=== PATIENT | male | born 1945 | race Caucasian/White ===

== ENCOUNTER 2016-07-22 11:48 | Day surgery (SDC) | payer MEDICARE, OTHER ==
--- NOTE | 2016-07-22 10:21 | HP ---
PROCEDURE DATE: 07/22/16 HISTORY OF PRESENT ILLNESS: The patient is a 71 y/o who had prior history of colonoscopy [address] Jordan[address] Had some polyp at that time. He has lost 16 pounds over the past 8 weeks, doesn't have any appetite, has not had any significant abdominal pain. He has been seen by the kidney doctor who questioned whether he had some blood in his urine. They ordered a CT. CT scan showed question of findings of cirrhosis or varices or splenorenal varices as well. He denies any bloody stools or change in bowel movements. Family history negative for colon cancer and unsure whether mother had bladder cancer or some other type of cancer, but negative for colon cancer. There are also several other types of cancers in the family, but negative for colon cancer according to the patient. PAST MEDICAL HISTORY: He has rheumatoid arthritis. Has had atrial flutter in the past. He had been on Eliquis in the past, but he stopped over the past 3 weeks. He has had some hypothyroidism as well and some gout. CURRENT MEDICATIONS: Remicade, Synthroid, omeprazole, testosterone, Colace. He has been off of his Eliquis for 3 weeks. He has been on metoprolol, Tamsulosin, Fosamax, allopurinol, magnesium oxide, vitamin D, and Buspirone. ALLERGIES: NKDA. PAST SURGICAL HISTORY: He had wrist surgery 55 years ago. He had had colonoscopy by Dr. Jordan in the past. FAMILY HISTORY: Again, family history of bladder cancer and several other types of cancer on his mother's side. SOCIAL HISTORY: No smoking or alcohol abuse. REVIEW OF SYSTEMS: 12 systems reviewed negative or noncontributory other than above and per admission assessment. PHYSICAL EXAMINATION: GENERAL: No acute distress. HEENT: Sclerae nonicteric. NECK: No JVD. CHEST: Equal excursion. Nonlabored breathing. CVS: Regular rhythm. ABDOMEN: Soft. No peritoneal signs. EXTREMITIES: No edema. NEURO: Alert, moving extremities symmetrically. No gross motor deficits noted. Dr. Calle had talked to Dr. Monica Rodriguez and she saw him in the office. Had set him up to see Dr. Gaitan who took over for Dr. Jordan, but couldn't see him until September, so they asked that we see him sooner, so Dr. Anderson scheduled to have him come in to the office and possible upper and lower scope today. Past ultrasounds show unremarkable right upper quadrant US. He had had a CT scan show suspected cirrhotic liver, splenomegaly, splenorenal varices, question of esophageal varices, small amount of pelvic ascites. There is some new cecal/ascending colon wall thickening and question of stranding and some small mesenteric nodes, some fecal stasis, diverticulosis, small amount of fluid in the left inguinal area, nonobstructing renal calculi bilaterally. IMPRESSION: THICKENING ASCENDING COLON. NEW FINDINGS OF QUESTION OF CIRRHOSIS OR VARICES, UNCLEAR ETIOLOGY. WHETHER HE HAS MALIGANCY, COLITIS, NEOPLASIA VS OTHER ETIOLOGY. [place] he would benefit from upper and lower endoscopy for further evaluation. The patient denies any history of hepatitis or alcohol abuse in the past. Therefore, felt he would benefit from upper and lower endoscopy for further evaluation. Risks and benefits explained in detail, but not limited to, bleeding; infection; small risk of bowel injury or perforation possibly requiring open procedure; small risk of missed or nondiagnosis or incomplete exam possibly requiring barium enema or other studies or procedures; general risks of anesthesia or sedation; postoperative risk of nausea, vomiting, or cramping or possibility of inability to diagnose the etiology of his symptoms. He understands and agrees to the planned procedure. Will proceed with EGD/colonoscopy later today when OR time available.
[~2016-07-22 11:48] MED LIST: DIPRIVAN 200 MG/20 ML IV ONE; Ketamine HCl 50 MG/ML IV ONE
[2016-07-22] MEDS ORDERED: Lactated Ringers 1,000 ML IV SCH (12:30)
--- NOTE | 2016-07-22 15:45 | OP ---
SURGERY DATE/TIME: 07/22/2016 1406 PREOPERATIVE DIAGNOSES: 1) History of weight loss. 2) History of CT questioning thickening ascending colon as well as question of splenorenal varices question cirrhosis or ascites unclear etiology. Need for upper and lower endoscopy for further evaluation given weight loss. POSTOPERATIVE DIAGNOSES: 1) Slight hiatal hernia. 2) Minimal gastritis. 3) Poor bowel prep limiting colon exam. 4) Moderate to severe diverticulosis. 5) Small internal and external hemorrhoids. 6) Small raised lesion rectosigmoid and rectum. 7) No evidence of any obvious gross macroscopic colitis or mass right colon on endoscopic exam. PROCEDURES: 1) EGD with cold biopsy to antrum for Helicobacter pylori. 2) Colonoscopy to terminal ileum, retrograde ileoscopy. 3) Retrograde ileoscopy. 4) Random cold biopsies of right colon transverse colon to evaluate microscopic colitis. 5) Hot biopsy removal of small raised lesion versus hyperplastic lesion versus early polyp rectosigmoid and rectum. SURGEON: Dr. Jay Kingsley. ANESTHESIA: MAC. ESTIMATED BLOOD LOSS: Minimal. INDICATIONS: As noted above. Risks and benefits explained in detail and not limited to and consent obtained. DESCRIPTION OF PROCEDURE AND FINDINGS: The patient was taken to the endoscopy room. MAC anesthesia induced. After official time out and no disagreement with planned procedure, bite block positioned. Video gastroscope easily passed down through the esophagus through the patent pylorus to the junction of the second and third portion of the duodenum. On withdrawal of the scope, duodenum and duodenal bulb grossly unremarkable. Back in the stomach had some minimal gastritis. Given his weight loss, cold biopsy taken to evaluate for Helicobacter pylori. Good hemostasis noted. On retroflex appeared to be just a very slight hiatal hernia. No evidence of any large hiatal hernia. There are no signs of any obvious masses, ulcers or any other mucosal lesions. The scope was then pulled back and the gastroesophageal junction noted to be at 40 cm. Z-line was fairly crisp. Esophageal mucosa was grossly unremarkable. No signs of any obvious masses, ulcers or Correa's. There did not appear to be any large intraluminal varices on endoscopic exam at this juncture. The remainder of the esophagus grossly unremarkable. The scope is withdrawn. Digital rectal exam did not reveal any rectal masses. He did have some internal and external hemorrhoids. Video colonoscope inserted and passed up the sigmoid, descending, transverse amd ascending colon to the cecum. Up into the terminal ileum retrograde ileoscopy was performed. Terminal ileum grossly unremarkable. The scope was then carefully withdrawn. The prep overall was poor. Several areas of liquidy semi-solid and solid stool limiting the exam for potential small lesions. The mucosa in the cecum, ascending, transverse colon was grossly unremarkable. No signs of any macroscopic colitis. Given the CT findings it was felt that it warranted biopsy for microscopic colitis. Some cold biopsies taken throughout the cecum, ascending, transverse colon to evaluate for microscopic colitis. Otherwise the scope is slowly and carefully withdrawn. There are no signs of any large polyps, masses or obstructing lesions. Over in the left colon the patient did have moderately severe diverticulosis. There are no signs of any large polyps, masses or obstructing lesions. Back in the rectosigmoid and proximal rectum area there is some small raised lesions whether these are just simple early hyperplastic polyps versus early true polyps versus just hyperplasia of mucosa removed with hot biopsy forceps with brief bursts of cautery. Good hemostasis noted. Otherwise he had some internal and external hemorrhoids. There were no signs of any large polyps, masses or obstructing lesion. Again it was difficult to tell whether question of cirrhotic changes on liver but he did not appear to have any obvious masses in the upper or lower GI tract. Question whether relation to his medications for treatment of arthritis. I defer that to his medical physician as there is no obvious intraluminal mass to suggest etiology of this. Findings discussed with the family out in the waiting area.
[2016-07-22 16:54] VITALS: BP 143/63; PULSE 70; O2SAT 99
== END 2016-07-22 16:10 | disposition home or self-care (01) ==
LOC: SDC 11:48
PROVIDERS: ATTEND Surgery
PROC: 0DB68ZX Excision of Stomach, Via Natural or Artificial Opening Endoscopic, Diagnostic (ICD-10-PCS; principal; 2016-07-22)
PROC: 0DBH8ZX Excision of Cecum, Via Natural or Artificial Opening Endoscopic, Diagnostic (ICD-10-PCS; 2016-07-22)
PROC: 0DBL8ZX Excision of Transverse Colon, Via Natural or Artificial Opening Endoscopic, Diagnostic (ICD-10-PCS; 2016-07-22)
PROC: 0DBK8ZX Excision of Ascending Colon, Via Natural or Artificial Opening Endoscopic, Diagnostic (ICD-10-PCS; 2016-07-22)
PROC: 0DBN8ZX Excision of Sigmoid Colon, Via Natural or Artificial Opening Endoscopic, Diagnostic (ICD-10-PCS; 2016-07-22)
PROC: 0DBP8ZX Excision of Rectum, Via Natural or Artificial Opening Endoscopic, Diagnostic (ICD-10-PCS; 2016-07-22)
PROC: 0DJD8ZZ Inspection of Lower Intestinal Tract, Via Natural or Artificial Opening Endoscopic (ICD-10-PCS; 2016-07-22)
DX: K44.9 Diaphragmatic hernia without obstruction or gangrene (principal); K29.70 Gastritis, unspecified, without bleeding; K57.90 Diverticulosis of intestine, part unspecified, without perforation or abscess without bleeding; K64.4 Residual hemorrhoidal skin tags; K64.8 Other hemorrhoids; K63.9 Disease of intestine, unspecified; M19.90 Unspecified osteoarthritis, unspecified site; E03.9 Hypothyroidism, unspecified; I48.92 Unspecified atrial flutter; M10.9 Gout, unspecified; Z79.01 Long term (current) use of anticoagulants; Z79.899 Other long term (current) drug therapy
CPT/HCPCS: 00740; 00810; 36415; 87081; 88305; 99100; J2704

== ENCOUNTER 2016-09-02 09:55 | Day surgery (SDC) | payer MEDICARE, OTHER ==
--- NOTE | 2016-09-02 08:45 | HP ---
DATE OF SURGERY: 09/02/2016 HISTORY OF PRESENT ILLNESS: The patient is a 71 year-old who follows with Dr. Gaitan and had some inguinal adenopathy on biopsy from past evaluation. Evaluate for any possible lipoma. PAST MEDICAL HISTORY: Sleep apnea. Right hiatal hernia in the past. Rheumatoid arthritis. Hypertension. Gout. He followed up with Dr. Delgado for atrial flutter in the past. MEDICATIONS: Remicade, Synthroid, folic acid, omeprazole, Colace, Metoprolol, Tamsulosin, Fosamax, Allopurinol, magnesium oxide, vitamin D, Buspirone. ALLERGIES: NKDA. PAST SURGICAL HISTORY: He had right wrist surgery in the past. He had endoscopy in the past. FAMILY HISTORY: Bladder cancer as well as other types of cancer on mother's side of the family. SOCIAL HISTORY: No smoking or alcohol abuse. REVIEW OF SYSTEMS: Twelve systems reviewed per admission assessment. No chest pain or palpitations other systems negative or noncontributory as above and per preadmission questionnaire. PHYSICAL EXAMINATION: GENERAL: No acute distress. HEENT: Sclerae nonicteric. NECK: No JVD. CHEST: Equal excursion, nonlabored breathing. CVS: Regular rate and rhythm. ABDOMEN: Soft. No peritoneal signs. He had some small inguinal adenopathy. EXTREMITIES: No significant edema. NEURO: Alert, moving extremities symmetrically. No gross motor deficits noted. IMPRESSION: Inguinal adenopathy. I feel he will benefit from biopsy to evaluate for lymphoma and to rule out other etiology. Risks and benefits explained in detail including but not limited to bleeding or infection, risk of hematoma or seroma formation. The fact that he will have a drain postoperatively and most the time removed in the office when the drainage has decreased. Risk of lymph edema, risk of aches, pains, burning or numbness, risk of wound infection, general risk of anesthesia, deep venous thrombosis, pulmonary embolism, and pneumonia but not limited to, possibility of inability to diagnose per the pathologist to determine the etiology of his adenopathy. He understands and agrees to the planned procedure and would like to proceed right inguinal adenopathy biopsy as an outpatient.
[~2016-09-02 09:55] MED LIST changes: -DIPRIVAN 200 MG/20 ML IV ONE; -Ketamine HCl 50 MG/ML IV ONE; +Lactated Ringers 1,000 ML IV ONE; +Sensorcaine 0.25% 10 ML ONE
[2016-09-02] MEDS ORDERED: CEFAZOLIN 2 GM-D5W BAG** 2 GM/50 ML ML IV ONE ×2 (10:02→10:04)
[2016-09-02] MEDS ORDERED: Lactated Ringers 1,000 ML IV ONE (10:04)
[2016-09-02] MEDS ORDERED: Lactated Ringers 1,000 ML IV SCH (10:30)
[2016-09-02] MEDS ORDERED: TORAdol 30 mg Injection IV ONE (12:00)
[2016-09-02] MEDS ORDERED: DIPRIVAN 200 MG/20 ML IV ONE (12:00)
[2016-09-02] MEDS ORDERED: SUBLIMAZE 100 MCG/2 ML IV ONE (12:00)
[2016-09-02] MEDS ORDERED: Ephedrine Sulfate 50 MG/ML IV ONE (12:00)
[2016-09-02] MEDS ORDERED: Zofran 4 MG/2 ML VIAL IV ONE (12:00)
[2016-09-02] MEDS ORDERED: Decadron 4 MG INJ IV ONE (12:00)
[2016-09-02 15:01] VITALS: O2SAT 97
[2016-09-02 15:15] VITALS: BP 148/83; PULSE 70
--- NOTE | 2016-09-03 07:51 | OP ---
SURGERY DATE/TIME: 09/02/2016 1130 PREOPERATIVE DIAGNOSIS: Inguinal lymphadenopathy. History of weight loss. Need for biopsy. POSTOPERATIVE DIAGNOSIS: Inguinal lymphadenopathy. History of weight loss. Need for biopsy. PROCEDURE: Excision of right inguinal lymph node with biopsy. SURGEON: Dr. Jay Kingsley. DESTINATION SIGN REPAIRER: Branden Leavitt, Medical Student III. ANESTHESIA: General. ESTIMATED BLOOD LOSS: Minimal. INDICATIONS: As noted above. Risks and benefits explained in detail and not limited to and consent obtained. DESCRIPTION OF PROCEDURE AND FINDINGS: The patient is taken to the operating room. General anesthesia induced. The site was confirmed with the patient in the preoperative hold area. The radiologist felt the right side was larger than the left so it was elected to go ahead and biopsy the right side. General anesthesia induced. Inguinal area prepped and draped in usual sterile fashion. After official time out dissection carried down the Mike fascia to the indurated lymphadenopathy. Small arteriole veins going in and out of the lymph node area and small lymphatics were clipped and divided as necessary. Slowly and carefully lymph nodes are carefully mobilized upwards and passed off per lymph node protocol. Good hemostasis noted. Wound is irrigated out. Given the empty space to reduce the risk of seroma or lymphocele formation a semi-flat LILIA drain is placed in the bed and out through an inferior stab wound on the thigh. Mike closed with 3-0 Vicryl, subcu closed with 3-0 Vicryl, skin closed with 4-0 Vicryl. Steri-Strips and sterile dressing applied. 0.25% Marcaine local injected along the area. The patient tolerated the procedure well. There were no immediate complications.
== END 2016-09-02 14:15 | disposition home or self-care (01) ==
LOC: SDC 09:55
PROVIDERS: ATTEND Surgery
PROC: 07TH0ZZ Resection of Right Inguinal Lymphatic, Open Approach (ICD-10-PCS; principal; 2016-09-02)
DX: R59.9 Enlarged lymph nodes, unspecified (principal); G47.30 Sleep apnea, unspecified; M06.9 Rheumatoid arthritis, unspecified; I10 Essential (primary) hypertension; M10.9 Gout, unspecified; Z79.899 Other long term (current) drug therapy
CPT/HCPCS: 00400; 36415; 99100; J0690; J1100; J1885; J2405; J2704; J3010

== ENCOUNTER 2018-10-26 11:35 | Day surgery (SDC) | payer MEDICARE, OTHER ==
--- NOTE | 2018-10-26 09:01 | HP ---
DATE OF SURGERY: 10/26/2018 HISTORY OF PRESENT ILLNESS: The patient is a 73 year-old gentleman with subcutaneous mass on the right arm increasing in size. He desires excision. PAST MEDICAL HISTORY: Anemia from blood loss in the past. Rheumatoid arthritis. History of gout in the past. Hypothyroidism. Hypertension. PAST SURGICAL HISTORY: Endoscopy in the past. MEDICATIONS: Lexapro, Norvasc, Synthroid, Fosamax, Allopurinol, Colace, Buspirone, Remicade, vitamin D. ALLERGIES: NKDA. FAMILY HISTORY: Bladder cancer. SOCIAL HISTORY: No smoking or alcohol abuse. REVIEW OF SYSTEMS: Fourteen systems reviewed per admission assessment. No chest pain or palpitations currently other systems negative or noncontributory as above and per preadmission questionnaire. PHYSICAL EXAMINATION: GENERAL: No acute distress. HEENT: Sclerae nonicteric. NECK: No JVD. CHEST: Equal excursion, nonlabored breathing. CVS: Regular rate and rhythm. ABDOMEN: Soft, nontender, nondistended. EXTREMITIES: Upper arm soft, subcutaneous mass right arm question of lipoma or other etiology. IMPRESSION: Enlarging right arm subcutaneous mass question lipoma or other etiology enlarging in size that needs excision. I feel he is a candidate. Risks and benefits explained in detail including but not limited to bleeding or infection, risk of hematoma or seroma formation, risk of wound dehiscence possibly requiring healing by secondary intent or packing, general risk of aches, pain, burning or numbness, risk of sensory or motor nerve irritation or scar formation, general risk of anesthesia, deep venous thrombosis, pulmonary embolism or pneumonia, risk of cardiopulmonary event, deep venous thrombosis but not limited to. He understands and agrees to the planned procedure, will proceed with excisional biopsy of right arm mass as an outpatient.
[~2018-10-26 11:35] MED LIST changes: +Lactated Ringers 1,000 ML IV SCH
[2018-10-26] MEDS ORDERED: CEFAZOLIN 2 GM-D5W BAG** 2 GM/50 ML ML IV ONE (11:43)
[2018-10-26] MEDS ORDERED: CEFAZOLIN 2 GM-D5W BAG** 2 GM/50 ML ML IV SCH (12:00)
[2018-10-26] MEDS ORDERED: DIPRIVAN 200 MG/20 ML IV ONE (12:53)
[2018-10-26] MEDS ORDERED: Versed 2 MG/2 ML Injection ONE (12:53)
[2018-10-26] MEDS ORDERED: SUBLIMAZE 100 MCG/2 ML ONE ×2 (12:53→13:18)
[2018-10-26 15:25] VITALS: O2SAT 95
[2018-10-26 15:28] VITALS: BP 150/89; PULSE 68
--- NOTE | 2018-10-27 08:27 | OP ---
SURGERY DATE/TIME: 10/26/2018 1252 PREOPERATIVE DIAGNOSIS: Enlarging right arm or lipoma. POSTOPERATIVE DIAGNOSIS: Enlarging right arm or lipoma (subfascial lipoma). PROCEDURE: Excisional biopsy of right arm subfascial lipoma (approximately 6 cm), path pending. SURGEON: Dr. Jay Kingsley. ANESTHESIA: General. ESTIMATED BLOOD LOSS: Minimal. INDICATIONS: As noted above. Risks and benefits explained in detail and not limited to and consent obtained. Site had been confirmed and marked in the preoperative holding area. DESCRIPTION OF PROCEDURE AND FINDINGS: The patient is taken to the operating room. General anesthesia introduced. Right arm prepped and draped in usual sterile fashion. After official time out and no disagreement with planned procedure, longitudinal incision made directly overlying the area and dissection carried down the underneath the fascia this is carefully and this lobulated firm lipomatous density carefully mobilized up off the deeper structures staying directly on the lobulated lipomatous margin this is carefully mobilized upward. The superficial nerve carefully protected as well as possible. Digital nerve carefully protected as well as possible. Small arteriole and venules going into and out of the lipomatous density ligated with Vicryl tie directly on the border of the lipoma. This was carefully passed off for pathology. There is no other palpable densities in the wound. The wound irrigated out. Good hemostasis noted. Subcu closed with 3-0 Vicryl, skin closed with 4-0 Vicryl. Steri-Strip and sterile dressing, wide CARL wrap applied. The patient tolerated the procedure well. There were no immediate complications. Findings were discussed with the family out in the waiting area.
== END 2018-10-26 15:15 | disposition home or self-care (01) ==
LOC: SDC 11:35
PROVIDERS: ATTEND Surgery
DX: D17.21 Benign lipomatous neoplasm of skin and subcutaneous tissue of right arm (principal)
CPT/HCPCS: 88304; 99100; J0690; J2250; J2704; J3010

== ENCOUNTER 2022-08-26 09:26 | Day surgery (SDC) | payer MEDICARE, OTHER ==
--- NOTE | 2022-08-26 08:46 | HP ---
DATE OF SURGERY: 08/26/2022 HISTORY OF PRESENT ILLNESS: The patient is a 77-year-old with history of polyps. No bloody stools. No new abdominal pain. He had some loose stools after eating that has been going on for six weeks with some bloating. Family history negative for colon cancer. PAST MEDICAL HISTORY: He had some hematuria. Dr. Heck is planning a cystoscopy. He has been on Xarelto for atrial fibrillation and had ablation in the past. Hypertension, hypothyroidism, gout, arthritis. PAST SURGICAL HISTORY: Colonoscopy. Biopsy of lipoma in the past. Dr. Heck is planning cystoscopy. MEDICATIONS: Finasteride, allopurinol, folic acid, levothyroxine, Norvasc, propranolol, pilocarpine, omeprazole, Xarelto, ropinirole, Lexapro, Tamsulosin, hydrocodone. ALLERGIES: NKDA. FAMILY HISTORY: Bladder cancer. Negative for colon cancer. SOCIAL HISTORY: No smoking or alcohol abuse. REVIEW OF SYSTEMS: Fourteen systems reviewed pertinent for the chronic loose stools. He has history of hematuria. Dr. Heck is planning a cystoscopy. Other systems negative or noncontributory as above and per preadmission questionnaire. PHYSICAL EXAMINATION: VITALS: Height 5'9". BMI 26.58. GENERAL: No acute distress. HEENT: Sclerae nonicteric. EOMI. Oral mucous membranes moist. NECK: No JVD. CHEST: Equal excursion, nonlabored breathing. CVS: Regular rate and rhythm. ABDOMEN: Soft. EXTREMITIES: No significant edema. NEURO: Alert, oriented, moving extremities symmetrically. RECTAL: Deferred timed to endoscopy exam. PSYCH: Appropriate mood and affect. SKIN: Dry. IMPRESSION: History of polyps, some loose stools. He needs colonoscopy for further evaluation. Risks and benefits explained in detail including but not limited to risk of bleeding or infection, risk of bowel injury or perforation, risk of missed or nondiagnosis or incomplete exam possibly requiring barium enema, other studies or procedures, general risk of anesthesia or sedation, risk of bowel prep but not limited to, consent obtained. Will proceed with colonoscopy under MAC anesthesia as an outpatient.
[~2022-08-26 09:26] MED LIST changes: -Lactated Ringers 1,000 ML IV ONE; -Sensorcaine 0.25% 10 ML ONE
[2022-08-26] MEDS ORDERED: Lactated Ringers 1,000 ML IV ONE (10:12)
[2022-08-26] MEDS ORDERED: DIPRIVAN 200 MG/20 ML IV ONE ×2 (12:01→12:11)
[2022-08-26] MEDS ORDERED: Versed 2 MG/2 ML Injection ONE (12:07)
[2022-08-26] MEDS ORDERED: SUBLIMAZE 100 MCG/2 ML ONE (12:08)
[2022-08-26 13:06] VITALS: BP 129/82; O2SAT 96
[2022-08-26 13:32] VITALS: PULSE 84
--- NOTE | 2022-08-27 08:25 | OP ---
SURGERY DATE/TIME: 08/26/2022 1202 PREOPERATIVE DIAGNOSIS: History of bloating, history of loose stools, history of polyps, need for colonoscopy for further evaluation. POSTOPERATIVE DIAGNOSES: 1) ASA Class III. 2) Withdrawal time approximately eight minutes. 3) Fair bowel prep. 4) Left colon mild diverticulosis. 5) Small early polyp versus hyperplastic lesion transverse colon, rectosigmoid colon and rectum. 6) Fairly normal appearing terminal ileum. PROCEDURES: 1) Colonoscopy to terminal ileum. 2) Retrograde ileoscopy. 3) Random cold biopsies of ileum and colon to evaluate for microscopic ileitis and/or microscopie colitis. 4) Hot biopsy polypectomy small transverse colon polyp. 5) Hot biopsy polypectomy. 6) Small early polyp versus hyperplastic lesion rectosigmoid x2 and rectum x3. SURGEON: Dr. Jay Kingsley. ANESTHESIA: MAC. ESTIMATED BLOOD LOSS: Minimal. INDICATIONS: As noted above. Risks and benefits explained in detail but not limited to and consent obtained. DESCRIPTION OF PROCEDURE AND FINDINGS: The patient is taken to the endoscopy room. MAC anesthesia induced. After official time out and no disagreement with planned procedure, digital rectal exam did not reveal any rectal masses. Video colonoscope inserted and passed up through the tortuous sigmoid, descending, transverse and ascending colon. With the external pressure the scope was able to be passed to the appendiceal orifice and valve well visualized. The scope is passed back up the terminal ileum which is grossly unremarkable. Some random cold biopsies taken in the ileum. Some random cold biopsies taken in the ileum. Random cold biopsies taken in the colon to evaluate for microscopic colitis. Prep overall is fair. There was a little bit of liquidy semisolid, some particle of stool limiting the exam for small lesions. On careful withdrawal of the scope, a small 2 mm polyp was in a fold in the transverse colon removed with hot biopsy polypectomy. Good hemostasis noted. This could be an early adenoma versus hyperplastic. There were two small in the rectosigmoid and three small in the rectum early polyps versus hyperplastic lesion removed with hot biopsy polypectomy. The patient tolerated the procedure well. There were no immediate complications. Good hemostasis noted. Again, random cold biopsies had been taken in the ileum and colon. Findings discussed with the family out in the waiting area. I will see him back in the office next week.
== END 2022-08-26 13:15 | disposition home or self-care (01) ==
LOC: SDC 09:26
PROVIDERS: ATTEND Surgery
DX: Z09 Encounter for follow-up examination after completed treatment for conditions other than malignant neoplasm (principal); Z86.010 Personal history of colon polyps; Z87.19 Personal history of other diseases of the digestive system; Z80.52 Family history of malignant neoplasm of bladder; K57.30 Diverticulosis of large intestine without perforation or abscess without bleeding; D12.7 Benign neoplasm of rectosigmoid junction; D12.3 Benign neoplasm of transverse colon
CPT/HCPCS: 99100; J2250; J2704; J3010

== ENCOUNTER 2022-10-14 08:47 | Day surgery (SDC) | payer MEDICARE, OTHER ==
--- NOTE | 2022-10-14 07:56 | HP ---
DATE OF SURGERY: 10/14/2022 HISTORY OF PRESENT ILLNESS: The patient is a 77-year-old had colonoscopy recently and now complains of dysphagia. PAST MEDICAL HISTORY: Hypertension, hyperthyroidism, gout, arthritis. PAST SURGICAL HISTORY: Colonoscopy. Biopsy of lipoma in the past. MEDICATIONS: Finasteride, allopurinol (gout), folic acid, levothyroxine (hypothyroidism), propranolol, Norvasc, pilocarpine drops, omeprazole, Xarelto, ropinirole, Lexapro, tamsulosin, hydrocodone. ALLERGIES: NKDA. FAMILY HISTORY: Bladder cancer. SOCIAL HISTORY: No smoking or alcohol abuse. REVIEW OF SYSTEMS: Fourteen systems reviewed. He follows with Dr. Heck. He had some loose stools. He had some microscopic colitis. PHYSICAL EXAMINATION: Height 5'9". BMI 26.58. GENERAL: No acute distress. HEENT: Sclerae nonicteric. EOMI. Oral mucous membranes moist. NECK: No JVD. CHEST: Equal excursion, nonlabored breathing. CVS: Regular rate and rhythm. ABDOMEN: Soft. No peritoneal signs. EXTREMITIES: No significant edema. NEURO: Alert, oriented, moving extremities symmetrically. PSYCH: Appropriate mood and affect. SKIN: Dry. IMPRESSION: History of small polyps and microscopic colitis on last colonoscopy. Here for upper GI regarding medical treatment of his colitis. Otherwise, he is going to have follow up colonoscopy in three years regarding polyps. Now he complains of dysphagia upper esophagus, family negative for esophageal cancer. No prior EGD according to the patient. I felt that he would benefit from EGD possible biopsy possible dilatation. He was shown the risk sheet explained the procedure in detail but not limited to bleeding or infection, risk of bowel injury or perforation, risk of missed or nondiagnosis or incomplete exam possibly requiring barium swallow, other studies or procedures, other types of dilators, risk of perforation possibly requiring open procedure or transfer for stent placement and possibility of no improvement. If he does improve possibly might require it again down the road. He understands and agrees to the planned procedure. Will proceed with EGD possible biopsy possible dilatation as an outpatient.
[2022-10-14] MEDS ORDERED: Lactated Ringers 1,000 ML IV SCH (09:00)
[2022-10-14] MEDS ORDERED: Lactated Ringers 1,000 ML IV ONE (09:30)
[2022-10-14 09:32] VITALS: TEMP 98
[2022-10-14] MEDS ORDERED: Xylocaine-Mpf 2% 5 Ml Vial ONE (10:42)
[2022-10-14] MEDS ORDERED: DIPRIVAN 200 MG/20 ML IV ONE (10:42)
[2022-10-14] MEDS ORDERED: Versed 2 MG/2 ML Injection ONE (10:42)
[2022-10-14 11:52] VITALS: RESP 16
[2022-10-14 12:14] VITALS: BP 153/87; PULSE 72; O2SAT 96
--- NOTE | 2022-10-15 07:52 | OP ---
SURGERY DATE/TIME: 10/14/2022 1054 PREOPERATIVE DIAGNOSIS: Dysphagia. POSTOPERATIVE DIAGNOSES: 1) Proximal esophageal narrowing and spasm without evidence of any mass. 2) Mild gastritis. PROCEDURES: 1) EGD with cold biopsy of antrum for Helicobacter pylori. 2) Cold biopsy mid esophagus to evaluate for eosinophilic esophagitis. 3) Proximal esophageal dilatation (size 20 balloon dilator). SURGEON: Dr. Jay Kingsley. ANESTHESIA: MAC. ESTIMATED BLOOD LOSS: Minimal. INDICATIONS: As noted above. Risks and benefits explained in detail and not limited to and consent obtained. DESCRIPTION OF PROCEDURE AND FINDINGS: The patient is taken to the operating room. MAC anesthesia introduced. After official time out and no disagreement with planned procedure, a bite block positioned. Video gastroscope was able to be passed down the proximal esophagus. There was some spasm and narrowing here where he was having some symptoms. The scope was able to be passed down through the patent pylorus to the junction of the third and fourth portion of the duodenum. The scope is carefully withdrawn. No signs of any ulcers or inflammation of the duodenum. Scope pulled back in the stomach. He had some mild gastric erythema and some congestion and some mild gastritis. Cold biopsy is taken to evaluate for Helicobacter pylori. On retroflex the gastroesophageal junction was fairly snug against the scope. There were no signs of any large hiatal hernia. The scope is pulled back to the gastroesophageal junction about 39 cm. Z-line was fairly crisp. No signs of Correa'. No signs of any significant erosions. The scope is carefully pulled back. Random cold biopsies taken in mid esophagus to evaluate for eosinophilic esophagitis given his dysphagia and again the proximal esophagus area was narrowed and had spasm. There was no mass to biopsy or lesion to biopsy but given his symptoms it was felt it warranted a trial of dilatation. The scope is passed back down the stomach. The 20 balloon catheter carefully inserted in the stomach in the open space, pulled back and gradually inflated first stage for 30 seconds to 1 minute, size 18 and size 19 for 30 seconds and finally size 20 dilator positioned for 2 minutes. The balloon catheter then decompressed and withdrawn. The area seemed to be more widely patent post-dilatation. There is no evidence of any full thickness issue secondary to dilatation. The scope is withdrawn. The patient tolerated the procedure. I will see if he has family to discuss the findings with in the waiting area.
== END 2022-10-14 12:40 | disposition home or self-care (01) ==
LOC: SDC 08:47
PROVIDERS: ATTEND Surgery
DX: K29.70 Gastritis, unspecified, without bleeding (principal); R13.10 Dysphagia, unspecified; K22.2 Esophageal obstruction
CPT/HCPCS: 99100; C1726; J2250; J2704

== ENCOUNTER 2022-12-19 07:49 | Observation (INO) | payer MEDICARE, OTHER ==
[2022-12-19] MEDS ORDERED: Sodium Chloride 0.9% 1000 ML 1,000 ML IV STA (07:57)
[2022-12-19 08:21] LABS: Absolute Neutrophil Ct (ANC) 5.27 x10^3/uL (1.4-6.9); BASOPHIL % 0.6 % (0.0-0.4); Basophil (Absolute #) 0.05 x10^3/uL (0-0.4); Eosinophil % 1.5 % (0.00-5.0); Eosinophil (Absolute #) 0.12 x10^3/uL (0-0.5); Hematocrit 41.5 % (42-50); Hemoglobin 13.4 g/dL (12.5-18.0); IMMATURE GRAN # 0.03 x10^3u/L (0.00-0.03); IMMATURE GRAN % 0.4 % (0.00-0.4); Lymphocyte (Absolute #) 1.85 x10^3/uL (1.0-4.6); Lymphocytes % 23.3 % (24.0-44.0); Mean Cell Volume 94.5 fL (78-100); Mean Corpuscular Hemoglobin 30.5 pg (26-32); Mean Corpuscular Hgb Concent. 32.3 g/dL (32-36); Mean Platelet Volume 9.2 fL (7.5-11.0); Monocyte (Absolute #) 0.61 x10^3/uL (0.0-1.3); Monocytes % 7.7 % (0.0-12.0); Neutrophil % 66.5 % (36.0-66.0); Platelet Count 181 x10^3/uL (150-450); Red Blood Count 4.39 x10^6/uL (4.1-5.6); Red Cell Distribution Width 14.1 % (11.5-14.0); White Blood Count 7.9 x10^3/uL (4.0-10.5)
[2022-12-19 08:35] LABS: ALBUMIN 3.9 g/dL (3.5-5.0); BILIRUBIN,TOTAL 0.8 mg/dL (0.2-1.3); Calcium 9.1 mg/dL (8.4-10.2); Creatinine 1 2.04 mg/dL (0.66-1.25); EST GLOMERULAR FILTRATION RATE 33.7 ML/MIN; Potassium 3.2 mmol/L (3.5-5.1); Total Protein 6.6 g/dL (6.3-8.2)
[2022-12-19 08:36] LABS: D-DIMER QUANTITATIVE < 0.19 mg/L (0.0-0.50); INR 1.25 (0.8-3.0); PROTIME 13.4 SECONDS (9.4-12.5)
[2022-12-19] MEDS ORDERED: Sodium Chloride 0.9% 1000 ML 1,000 ML ONE (08:46)
[2022-12-19 08:47] LABS: Appearance Cloudy (Clear); Bacteria None Seen /HPF (None Seen); Bilirubin Negative (Negative); Blood Large (Negative); Epithelial Cells None Seen /HPF (None Seen); Glucose, Urine Negative (Negative); Ketones Negative (Negative); Leukocyte Esterase Moderate (Negative); Nitrite Negative (Negative); Ph 5.5 (4.6-8.0); Protein,Urine Dip Trace (Negative); RBC >100 /HPF (0-5); Urobilinogen 0.2 mg/dL (0.2); WBC 21-50 /HPF (0-5)
[2022-12-19 08:56] LABS: ADD URINE CULTURE? YES (NO)
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
--- NOTE | 2022-12-19 09:03 | XRAY ---
Indication: Pain following injury. Comparison: None 3 view left elbow demonstrates osteopenia, tiny posterior olecranon spur, small oval lateral epicondyle heterotopic ossification, and IV catheter in situ. No other bony, articular, or soft tissue abnormalities.
--- NOTE | 2022-12-19 09:03 | XRAY ---
Indication: Syncope. Comparison: August 01, 2016 Portable chest demonstrates new right middle lobe infiltrate/atelectasis and left base discoid atelectasis/scarring. Remaining heart and lungs unremarkable. Bony thorax intact with osteopenia and mild degenerative changes.
--- NOTE | 2022-12-19 09:31 | XRAY ---
Indication: Syncope. Multiple contiguous axial images obtained through the head without contrast. Comparison: October 03, 2017. Again age-appropriate global atrophy and minimal periventricular degenerative micro-ischemia. No acute intracranial hemorrhage, abnormal extra-axial fluid collection, or mass effect are fourth ventricle is midline without hydrocephalus pain bony calvarium intact. New 1 cm right maxillary sinus polyp/retention cyst. Remaining paranasal sinuses and mastoid air cells are clear. Impression: Continued nonacute senile brain. Incidental right maxillary sinus polyp/retention cyst.
--- NOTE | 2022-12-19 09:38 | XRAY ---
Indication: Hematuria. Multiple contiguous axial images obtained through the abdomen and pelvis without contrast using renal stone protocol. Comparison: May 16, 2022 Lung bases demonstrates increasing mild bibasilar subsegmental atelectasis/scarring. No infiltrate or effusion. Heart not enlarged. Enlarging moderate sized hiatal hernia with partial intrathoracic stomach. Both kidneys demonstrates grossly stable faint nephrocalcinosis without obstructive uropathy. Stable small right mid to lower renal exophytic cyst. Noncontrasted stomach and bowel loops nonobstructed. Appendix not visualized. Again mild diffuse fecal stasis and scattered descending/sigmoid diverticulosis without diverticulitis. No free fluid/air. Remaining liver, gallbladder, pancreas, spleen, adrenal glands, kidneys, ureters, and bladder are unremarkable for noncontrast exam. There remains minimal aortic calcifications without AAA. Osseous structures intact again with osteopenia, mild/moderate degenerative changes throughout the spine, minimal double curvature thoracolumbar scoliosis, mild degenerative changes both hips, and old right rib fractures. Stable small fatty left inguinal hernia and right inguinal surgical clips. Impression: 1. Stable nonobstructing faint bilateral nephrocalcinosis and small right renal cyst. 2. Enlarging hiatal hernia with partial intrathoracic stomach. 3. Chronic findings including atelectasis/scarring, mild fecal stasis, colonic diverticulosis, arteriosclerotic disease, chronic bony findings, and small fatty left inguinal hernia.
[2022-12-19] MEDS ORDERED: Klor Con PO ONE (11:19)
[2022-12-19] MEDS: ROCEPHIN 1 Gm-D5w 50 ml Bag** 1 G/50 ML IVPB IV SCH (11:44)
[2022-12-19] MEDS: Zithromax 500 MG/ 250 ML NaCl Premix 500 MG/250 ML IVPB IV SCH (12:22)
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
[2022-12-19] MEDS ORDERED: TESTOSTERONE ENANTHATE IM SCH (14:00)
[2022-12-19] MEDS ORDERED: HYDROCODONE-ACETAMIN 10-325 MG PO PRN (14:00)
[2022-12-19] MEDS ORDERED: INFLIXIMAB 100 MG IV SCH (14:00)
[2022-12-19] MEDS ORDERED: AUTO INJCT IM SCH (14:00)
--- NOTE | 2022-12-19 14:10 | XRAY ---
Indication: Abnormal chest x-ray. Multiple contiguous axial images obtained through the chest without contrast. Comparison: July 12, 2016 New mild bibasilar and medial right middle lobe subsegmental atelectasis/scarring. No suspicious pulmonary mass/nodule, infiltrate, or effusion. Heart not enlarged with new prominent right epicardiac fat felt to correspond to chest radiograph finding. Aorta is normal in course and caliber. New small subcarinal calcified granuloma. No pathologic mediastinal lymphadenopathy. New small hiatal hernia. Bony thorax intact with osteopenia, mild/moderate degenerative changes, and old sternal fracture. CT abdomen/pelvis reported separately. Impression: 1. New bibasilar atelectasis/scarring, prominent right epicardiac fat, hiatal hernia, and old granulomatous disease. 2. Stable chronic bony findings. 3. Remaining CT chest without contrast exam is negative.
[2022-12-19] MEDS ORDERED: MEDICATION INTERVENTION MC SCH ×2 (14:30)
--- NOTE | 2022-12-19 14:50 | XRAY ---
Indication: Syncope. Two-dimensional sonogram and color Doppler imaging carotid arteries of the neck performed. Imperson: July 03, 2015 Examination of the right carotid circulation again demonstrates widely patent tortuous common carotid artery. Again minimal calcified plaquing distal carotid bulb/origin internal carotid artery. Widely patent external carotid artery. PSV of the CCA is 76 cm/s. PSV of the ICA is 37 cm/s. ICA/CCA ratio 0.5. Normal antegrade vertebral artery flow. Examination of the left carotid circulation again demonstrates minimal heterogeneous plaquing distal carotid bulb/origin external carotid artery. Widely patent common carotid and internal carotid arteries. PSV of the CCA is 73 cm/s. PSV of the ICA is 71 cm/s. ICA/CCA ratio is 1.0. Normal antegrade vertebral artery flow. Impression: Again minimal arteriosclerotic plaquing bilaterally. Velocity measurements and ratios remain negative for hemodynamically significant flow-limiting stenosis.
[2022-12-19] MEDS: BIOTENE MM SCH ×2 (15:12→21:28)
[2022-12-19] MEDS: Docusate Sodium 100 MG PO SCH (21:25)
[2022-12-19] MEDS: Inderal PO SCH (21:26)
[2022-12-19] MEDS ORDERED: PROPRANOLOL HCL 40 MG PO SCH (22:00)
[2022-12-19] MEDS ORDERED: REQUIP 2MG TAB PO SCH (22:00)
[2022-12-20 04:45] LABS: Mean Cell Volume 93.5 fL (78-100); Mean Corpuscular Hemoglobin 30.4 pg (26-32); Mean Corpuscular Hgb Concent. 32.5 g/dL (32-36); Platelet Count 180 x10^3/uL (150-450); Red Blood Count 4.28 x10^6/uL (4.1-5.6); Red Cell Distribution Width 14.4 % (11.5-14.0); White Blood Count 7.7 x10^3/uL (4.0-10.5)
[2022-12-20 05:25] LABS: ALBUMIN 3.4 g/dL (3.5-5.0); ANION GAP 8.9 MEQ/L (5-15); BILIRUBIN,TOTAL 0.9 mg/dL (0.2-1.3); Calcium 8.7 mg/dL (8.4-10.2); Creatinine 1 1.55 mg/dL (0.66-1.25); EST GLOMERULAR FILTRATION RATE 46.3 ML/MIN; Potassium 3.1 mmol/L (3.5-5.1); Total Protein 5.9 g/dL (6.3-8.2)
[2022-12-20 06:58] VITALS: BP 153/69; PULSE 92; RESP 18; TEMP 97.8; O2SAT 94
[2022-12-20] MEDS: Klor Con PO SCH ×3 (08:09→11:49)
[2022-12-20] MEDS ORDERED: Flomax 0.4 MG PO SCH (10:00)
[2022-12-20] MEDS ORDERED: FOLATE 1 MG PO SCH (10:00)
[2022-12-20] MEDS ORDERED: Protonix 40MG Tablet PO SCH (10:00)
[2022-12-20] MEDS ORDERED: XARELTO 10 MG TABLET PO SCH (10:00)
[2022-12-20] MEDS ORDERED: NON-FORMULARY ITEM (Omeprazole [Prilosec] 40 MG Capsule.Dr) PO SCH (10:00)
[2022-12-20] MEDS ORDERED: Proscar 5 MG PO SCH (10:00)
[2022-12-20] MEDS ORDERED: Lexapro PO SCH (10:00)
[2022-12-20] MEDS ORDERED: NON-FORMULARY ITEM (Rivaroxaban [Xarelto] 15 MG Tablet) PO SCH (10:00)
[2022-12-20] MEDS ORDERED: ZYLOPRIM 100 MG PO SCH (10:00)
[2022-12-20] MEDS ORDERED: SYNTHROID 112 MCG PO SCH (10:00)
[2022-12-20] MEDS ORDERED: ZYLOPRIM 300 MG PO SCH (10:00)
[2022-12-20] MEDS ORDERED: NON-FORMULARY ITEM (Escitalopram Oxalate [Lexapro] 5 MG Tablet) PO SCH (10:00)
[2022-12-20] MEDS: Inderal PO SCH (10:17)
[2022-12-20] MEDS: Docusate Sodium 100 MG PO SCH (10:18)
[2022-12-20] MEDS: Zithromax 500 MG/ 250 ML NaCl Premix 500 MG/250 ML IVPB IV SCH (10:19)
[2022-12-20] MEDS: ROCEPHIN 1 Gm-D5w 50 ml Bag** 1 G/50 ML IVPB IV SCH (10:19)
[2022-12-20] MEDS: BIOTENE MM SCH (10:26)
[2022-12-20] MEDS ORDERED: MARY'S MOUTHWASH PO PRN (10:41)
--- NOTE | 2022-12-20 11:15 | PCM.DS ---
Discharge Summary Date of Admission: 12/19/22 11:02 Date of Discharge: 12/20/22 Admitting Physician: NAYELY LARKIN MD Primary Care Provider: MANNY CASTRO Allergies Allergies No Known Drug Allergies Allergy (Verified 12/19/22 11:38) Hospital Summary - Hospital Course Hospital Course: 12/19/22 is a 77 year old male with a PMHx of arrhythmia, HTN, sleep apnea, hypothyroidism, Psoriatic arthritis, GERD, CKD, and anxiety. His cardioligist is Dr. Delgado, urologist Dr. Cedillo, and Dr. Sanz Pharmaceutical Process Engineer. Pt reports this morning he went to stand up to go shave when he felt he was going to fall and lost consciousness for just a minute. Denies hitting his head. He hit his left elbow but no injury. He also reports he has been urinating blood for the past 3 weeks, denies any urinary symptoms or unusual back pain. He is on Eliquis. Rec ently saw cardiology for routine follow up last Friday. Last cystoscopy by Dr Cedillo showed sand in ureters and this was a yr ago. He follows up with nephrology often. Chest XR appears he has pneumonia, antibiotics started. CT of chest ordered for further evaluation. Rocephin ordered for UTI. CT abd pelvis showed 1. Stable nonobstructing faint bilateral nephrocalcinosis and small right renal cyst.2. Enlarging hiatal hernia with partial intrathoracic stomach.3. Chronic findings including atelectasis/scarring, mild fecal stasis,colonic diverticulosis, arteriosclerotic disease, chronic bony findings, and small fatty left inguinal hernia. Hgb stable. For syncope will order Echo and carotid duplex for further evaluation. Potassium replaced. He denies Cp, SOB, Abd. pain, N/V/D. 12/20/22 Pt explained he is feeling much better today and would like to go home. He has no dizziness or lightheadedness. He does not feel he is going to pass out since holding meds. Flomax was not held yesterday due to continued blood in urine. This has improved today. Explained he will need to f/u with urology and nephrology next week. Appointments made for pt. He needs further eval of why he has continued hematuria. Pt c/o mouth soreness and will send home with Trin[employer]'s magic mouthwash as well as Salagan for dry mouth. Will need to f/u with PCP for Echo results. Vitamin B12 lab pending. Carotid Duplex was negative. Will d/c with Cipro for UTI. XU has improved. CT does not appear to be pneumonia- antibiotics stopped. He denies CP, SOB, Abd pain, N/V/D. - Vitals & Intake/Output Vital Signs: Vital Signs Temperature 97.8 F 12/20/22 06:58 Pulse Rate 92 H 12/20/22 06:58 Respiratory Rate 18 12/20/22 06:58 Blood Pressure 153/69 12/20/22 06:58 O2 Sat by Pulse Oximetry 94 L 12/20/22 06:58 Intake & Output: Intake & Output 12/17/22 12/18/22 12/19/22 12/20/22 11:59 11:59 11:59 11:59 Intake Total 1437 Output Total 250 Balance 1187 Weight 91.9 kg - Lab Result Diagrams: 12/20/22 04:30 12/20/22 04:30 Lab Results-Last 24 Hrs: Lab Results-Last 24 Hours 12/19/22 12/19/22 12/19/22 Range/Units 12:10 15:58 20:15 WBC (4.0-10.5) x10^3/uL RBC (4.1-5.6) x10^6/uL Hgb (12.5-18.0) g/dL Hct (42-50) % MCV (78-100) fL MCH (26-32) pg MCHC (32-36) g/dL RDW (11.5-14.0) % Plt Count (150-450) x10^3/uL MPV (7.5-11.0) fL Sodium (137-145) mmol/L Potassium (3.5-5.1) mmol/L Chloride (98-107) mmol/L Carbon Dioxide (22-30) mmol/L Anion Gap (5-15) MEQ/L BUN (9-20) mg/dL Creatinine (0.66-1.25) mg/dL Estimated GFR ML/MIN Glucose (74-106) mg/dL Calcium (8.4-10.2) mg/dL Magnesium (1.6-2.3) mg/dL Total Bilirubin (0.2-1.3) mg/dL AST (17-59) U/L ALT (0-50) U/L Alkaline Phosphatase (38-126) U/L Troponin I < 0.012 < 0.012 < 0.012 (0.000-0.034) ng/mL Serum Total Protein (6.3-8.2) g/dL Albumin (3.5-5.0) g/dL Procalcitonin (0.030-0.080) ng/mL TSH 3rd Generation (0.47-4.68) mIU/L 12/19/22 12/20/22 12/20/22 Range/Units Unknown 04:30 04:30 WBC 7.7 (4.0-10.5) x10^3/uL RBC 4.28 (4.1-5.6) x10^6/uL Hgb 13.0 (12.5-18.0) g/dL Hct 40.0 L (42-50) % MCV 93.5 (78-100) fL MCH 30.4 (26-32) pg MCHC 32.5 (32-36) g/dL RDW 14.4 H (11.5-14.0) % Plt Count 180 (150-450) x10^3/uL MPV 10.0 (7.5-11.0) fL Sodium 144 (137-145) mmol/L Potassium 3.1 L (3.5-5.1) mmol/L Chloride 107 (98-107) mmol/L Carbon Dioxide 32 H (22-30) mmol/L Anion Gap 8.9 (5-15) MEQ/L BUN 30 H (9-20) mg/dL Creatinine 1.55 H (0.66-1.25) mg/dL Estimated GFR 46.3 ML/MIN Glucose 93 (74-106) mg/dL Calcium 8.7 (8.4-10.2) mg/dL Magnesium (1.6-2.3) mg/dL Total Bilirubin 0.90 (0.2-1.3) mg/dL AST 22 (17-59) U/L ALT 22 (0-50) U/L Alkaline Phosphatase 69 (38-126) U/L Troponin I (0.000-0.034) ng/mL Serum Total Protein 5.9 L (6.3-8.2) g/dL Albumin 3.4 L (3.5-5.0) g/dL Procalcitonin 0.056 (0.030-0.080) ng/mL TSH 3rd Generation (0.47-4.68) mIU/L 12/20/22 12/20/22 Range/Units 04:30 04:30 WBC (4.0-10.5) x10^3/uL RBC (4.1-5.6) x10^6/uL Hgb (12.5-18.0) g/dL Hct (42-50) % MCV (78-100) fL MCH (26-32) pg MCHC (32-36) g/dL RDW (11.5-14.0) % Plt Count (150-450) x10^3/uL MPV (7.5-11.0) fL Sodium (137-145) mmol/L Potassium (3.5-5.1) mmol/L Chloride (98-107) mmol/L Carbon Dioxide (22-30) mmol/L Anion Gap (5-15) MEQ/L BUN (9-20) mg/dL Creatinine (0.66-1.25) mg/dL Estimated GFR ML/MIN Glucose (74-106) mg/dL Calcium (8.4-10.2) mg/dL Magnesium 2.1 (1.6-2.3) mg/dL Total Bilirubin (0.2-1.3) mg/dL AST (17-59) U/L ALT (0-50) U/L Alkaline Phosphatase (38-126) U/L Troponin I (0.000-0.034) ng/mL Serum Total Protein (6.3-8.2) g/dL Albumin (3.5-5.0) g/dL Procalcitonin (0.030-0.080) ng/mL TSH 3rd Generation 0.872 (0.47-4.68) mIU/L Micro Results-Entire Visit: Microbiology 12/19/22 07:52 Urine Culture - Preliminary Clean Catch Midstream NO GROWTH TO DATE - Radiology Exams Ordered Rad Exams-Entire Visit: Radiology Procedures Category Date Time Status ABDOMEN AND PELVIS W/0 CONTRAS [CT] Stat Exams 12/19/22 08:04 Completed CAROTID BILATERAL [US] Routine Exams 12/19/22 13:22 Completed CHEST 1 VIEW (PORTABLE) Stat Exams 12/19/22 07:58 Completed CHEST WITHOUT CONTRAST [CT] Routine Exams 12/19/22 13:19 Completed ECHO W/2D AND DOPPLER [US] Routine Exams 12/19/22 13:20 Taken ELBOW (MINIMUM 3 VIEWS) Stat Exams 12/19/22 08:27 Completed HEAD WITHOUT CONTRAST [CT] Stat Exams 12/19/22 07:58 Completed - Procedures and Test Procedures and Tests throughout Hospitalization: Therapy Orders & Screens 12/19/22 12:22 RT Screen per Nursing Assess ONCE Comment: Protocol Order Physician Instructions: Greater than 3 points order RT Admission Screen Reason For Exam: Triggered on Admission Diagnosis: syncope Diagnosis: syncope Pneumonia: Yes Home O2: Yes: HS W CPAP Asthma: No CHF: No Home CPAP/BIPAP: Yes Home Nebs/MDI: No Total Points: 13 ST Screen per Nursing Assess ONCE Comment: Protocol Order Physician Instructions: Greater than [address] Admission Screening Reason For Exam: Triggered on Admission Diagnosis: syncope CVA/Dyshpagia/Aphasia: No Cognitive Deficits: No Dehydration/Nutrition Deficit: No Reflux: No Oral-Motor Difficulties: No Pneumonia: Yes [facility] Resident: No Total Points: 5 12/20/22 07:30 RT Miscellaneous Order ROUTINE Comment: Physician Instructions: bring his in. Reason For Exam: pt wears Cpap at night. may need one if he cannot Diagnosis: syncope Discharge Exam General Appearance: no apparent distress, alert Neurologic Exam: alert, oriented x 3, cooperative, normal mood/affect, nml cerebellar function, sensation nml, No motor deficits Eye Exam: PERRL, EOMI, eyes nml inspection Ears, Nose, Throat Exam: normal ENT inspection, pharynx normal, moist mucous membranes Neck Exam: normal inspection, non-tender, supple, full range of motion Respiratory Exam: normal breath sounds, lungs clear, No respiratory distress Cardiovascular Exam: regular rate/rhythm, normal heart sounds Gastrointestinal/Abdomen Exam: soft, No tenderness, No mass Male Genitalia Exam: deferred Rectal Exam: deferred Back Exam: normal inspection, normal range of motion, No CVA tenderness, No vertebral tenderness Extremity Exam: normal inspection, normal range of motion Skin Exam: normal color, warm, dry Final Diagnosis/Problem List - Final Discharge Diagnosis/Problem (1) Syncope Current Visit: Yes Status: Acute Code(s): R55 - SYNCOPE AND COLLAPSE (2) Pneumonia Current Visit: Yes Status: Acute Code(s): J18.9 - PNEUMONIA, UNSPECIFIED ORGANISM (3) Hematuria Current Visit: Yes Status: Acute Code(s): R31.9 - HEMATURIA, UNSPECIFIED (4) Orthostatic hypotension Current Visit: Yes Status: Acute Code(s): I95.1 - ORTHOSTATIC HYPOTENSION (5) UTI (urinary tract infection) Current Visit: Yes Status: Acute Code(s): N39.0 - URINARY TRACT INFECTION, SITE NOT SPECIFIED (6) Psoriatic arthritis Current Visit: No Status: Chronic Code(s): L40.50 - ARTHROPATHIC PSORIASIS, UNSPECIFIED (7) Dry mouth Current Visit: Yes Status: Acute Code(s): R68.2 - DRY MOUTH, UNSPECIFIED (8) Hypothyroidism Current Visit: Yes Status: Acute Code(s): E03.9 - HYPOTHYROIDISM, UNSPECIFIED (9) GERD (gastroesophageal reflux disease) Current Visit: Yes Status: Acute Code(s): K21.9 - GASTRO-ESOPHAGEAL REFLUX DISEASE WITHOUT ESOPHAGITIS (10) BPH (benign prostatic hyperplasia) Current Visit: Yes Status: Acute Code(s): N40.0 - BENIGN PROSTATIC HYPERPLASIA WITHOUT LOWER URINRY TRACT SYMP (11) Anxiety Current Visit: Yes Status: Acute Assessment & Plan: (1) Syncope Current Visit: Yes Status: Acute Assessment & Plan: - Echo - Carotid duplex - hold Lasix, Bumex, HCTZ - Cont flomax due to hematuria and UTI - Head CT 12/19 Impression: Continued nonacute senile brain. Incidental right maxillary sinus polyp/retention cyst - Left elbow XR 12/19- negative for acute injury. Code(s): R55 - SYNCOPE AND COLLAPSE (2) Pneumonia Current Visit: Yes Status: Acute Assessment & Plan: - Chest XR: 12/19 Portable chest demonstrates new right middle lobe infiltrate/atelectasis and left base discoid atelectasis/scarring. Remaining heart and lungs unremarkable. Bony thorax intact with osteopenia and mild degenerative changes. - Rocephin, Azithromycin - Chest CT 12/19 Impression: 1. New bibasilar atelectasis/scarring, prominent right epicardiac fat, hiatal hernia, and old granulomatous disease. 2. Stable chronic bony findings. 3. Remaining CT chest without contrast exam is negative. 12/20 - Antibiotics stopped- does not appar to be pneumonia Code(s): J18.9 - PNEUMONIA, UNSPECIFIED ORGANISM (3) Hematuria Current Visit: Yes Status: Acute Assessment & Plan: - R/T UTI and XU? - Rocephin for UTI - Hgb stable- cont Xarelto - CT abd pelvis: 1. Stable nonobstructing faint bilateral nephrocalcinosis and small right renal cyst. 2. Enlarging hiatal hernia with partial intrathoracic stomach. 3. Chronic findings including atelectasis/scarring, mild fecal stasis, colonic diverticulosis, arteriosclerotic disease, chronic bony findings, and small fatty left inguinal hernia. Code(s): R31.9 - HEMATURIA, UNSPECIFIED (4) Orthostatic hypotension Current Visit: Yes Status: Acute Assessment & Plan: - R/T meds? - Lasix, Bumex and HCTZ held Code(s): I95.1 - ORTHOSTATIC HYPOTENSION (5) UTI (urinary tract infection) Current Visit: Yes Status: Acute Assessment & Plan: - Rocephin - UC pending Code(s): N39.0 - URINARY TRACT INFECTION, SITE NOT SPECIFIED (6) Psoriatic arthritis Current Visit: No Status: Chronic Assessment & Plan: - continue home meds Code(s): L40.50 - ARTHROPATHIC PSORIASIS, UNSPECIFIED (7) Dry mouth Current Visit: Yes Status: Acute Assessment & Plan: - Biotene - r/t meds - Would like Salagen at d/c we do not carry at this facility. - 12/20 - VItamin B12 lab- pending- pt has fissured tongue- may just be related to dry mouth Code(s): R68.2 - DRY MOUTH, UNSPECIFIED (8) Hypothyroidism Current Visit: Yes Status: Acute Assessment & Plan: - continue synthroid -TSH- WNL Code(s): E03.9 - HYPOTHYROIDISM, UNSPECIFIED (9) GERD (gastroesophageal reflux disease) Current Visit: Yes Status: Acute Assessment & Plan: - Continue omeprazole Code(s): K21.9 - GASTRO-ESOPHAGEAL REFLUX DISEASE WITHOUT ESOPHAGITIS (10) BPH (benign prostatic hyperplasia) Current Visit: Yes Status: Acute Assessment & Plan: - Continue flomax Code(s): N40.0 - BENIGN PROSTATIC HYPERPLASIA WITHOUT LOWER URINRY TRACT SYMP (11) Anxiety Current Visit: Yes Status: Acute Assessment & Plan: - Continue Lexapro Code(s): F41.9 - ANXIETY DISORDER, UNSPECIFIED - Discharge Discharge Date: 12/20/22 Disposition: Home, Self-Care Condition: Stable Prescriptions: New Potassium Chloride Tab* [Klor Con] 20 meq PO DAILY 3 Days #3 tablet Continue Omeprazole [Prilosec] 20 mg PO DAILY Allopurinol 100 mg [Zyloprim 100 mg] 300 mg PO DAILY Infliximab [Remicade Injection] 100 mg IV UD Tamsulosin HCl [Flomax] 0.4 mg PO DAILY Escitalopram Oxalate [Lexapro] 10 mg PO DAILY Levothyroxine Sodium 112 Mcg [Synthroid 112 Mcg] 112 mcg PO DAILY Propranolol HCl 40 mg PO BID Hydrocodone/Acetaminophen [[place] 10-325 Tablet] 1 each PO Q6HPRN PRN #0 PRN Reason: Moderate To Severe Pain Folic Acid 1 mg [Folate 1 mg] 1 mg PO DAILY Ropinirole 2Mg [Requip 2Mg Tab] 1 mg PO HS Finasteride 5 mg [Proscar 5 MG] 5 mg PO DAILY Testosterone Enanthate [Xyosted] 75 mg IM WEEKLY Rivaroxaban [Xarelto] 15 mg PO DAILY Alendronate Sodium 70 mg [Fosamax 70 MG] 70 mg PO WEEKLY Discontinued Budesonide [Budesonide Dr] 3 mg PO BID hydroCHLOROthiazide [Hydrochlorothiazide] 12.5 mg PO DAILY Furosemide 20 mg [Lasix 20 mg] 20 mg PO DAILY Instructions: Urinary Tract Infection, Adult (DC), Preventing falls in adults Additional Instructions: Weight yourself daily. If you gain > 5 pounds then resume Bumex. Follow up with: NYA ALANIS [COURTESY STAFF] - CALE SANZ [CONSULTING PHYSICIAN] - ROBERT OLIVEIRA NP [NON-STAFF PHY W/O PRIVILEGES] - 12/30/22 9:00 am
[2022-12-22] MEDS ORDERED: Fosamax 70 MG PO SCH (06:00)
== END 2022-12-20 12:07 | disposition home or self-care (01) ==
LOC: ED 07:49 → MED SURG 11:02
PROVIDERS: ADMIT Internal Medicine; ATTEND Internal Medicine
DX: R55 Syncope and collapse (principal); J18.9 Pneumonia, unspecified organism; R31.9 Hematuria, unspecified; N39.0 Urinary tract infection, site not specified; L40.50 Arthropathic psoriasis, unspecified; R68.2 Dry mouth, unspecified; I48.91 Unspecified atrial fibrillation; E03.9 Hypothyroidism, unspecified; K21.9 Gastro-esophageal reflux disease without esophagitis; N40.0 Benign prostatic hyperplasia without lower urinary tract symptoms; I12.9 Hypertensive chronic kidney disease with stage 1 through stage 4 chronic kidney disease, or unspecified chronic kidney disease; N18.9 Chronic kidney disease, unspecified; F41.9 Anxiety disorder, unspecified; M25.522 Pain in left elbow; W19.XXXA Unspecified fall, initial encounter; Z20.828 Contact with and (suspected) exposure to other viral communicable diseases; Z79.899 Other long term (current) drug therapy
CPT/HCPCS: 36000; 36415; 70450; 71045; 71250; 73080; 74176; 80053; 81001; 82607; 83735; 84145; 84443; 84484; 85025; 85027; 85379; 85610; 87086; 93005; 93268; 93306; 93880; 96360; 99285; G0378; Q3014; J0456; J0696; A9270-GY

== ENCOUNTER 2024-04-10 18:49 | Emergency (ER) | payer MEDICARE, OTHER ==
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
[2024-04-10 19:40] VITALS: TEMP 97.8
[2024-04-10 19:57] LABS: Appearance Cloudy (Clear); Bacteria None Seen /HPF (None Seen); Bilirubin Small (Negative); Blood Large (Negative); Epithelial Cells None Seen /HPF (None Seen); Glucose, Urine Negative (Negative); Hyaline Casts NONE SEEN /LPF (0-2); Ketones Negative (Negative); Leukocyte Esterase Small (Negative); Nitrite Negative (Negative); Protein,Urine Dip 100 (Negative); RBC >100 /HPF (0-5); Specific Gravity 1.015 (1.005-1.030); Urobilinogen 0.2 mg/dL (0.2)
[2024-04-10 20:19] LABS: Absolute Neutrophil Ct (ANC) 5.72 x10^3/uL (1.78-5.38); BASOPHIL % 0.5 % (0.2-1.2); Basophil (Absolute #) 0.04 x10^3/uL (0.01-0.08); Eosinophil % 1.8 % (0.8-7.0); Eosinophil (Absolute #) 0.14 x10^3/uL (0.04-0.54); Hematocrit 36.9 % (40.1-51.0); IMMATURE GRAN # 0.02 x10^3u/L (0.001-0.031); IMMATURE GRAN % 0.3 % (0.001-0.429); Lymphocyte (Absolute #) 1.44 x10^3/uL (1.32-3.57); Lymphocytes % 18.7 % (21.8-53.1); Mean Cell Volume 93.2 fL (79.0-92.2); Mean Corpuscular Hemoglobin 30.3 pg (25.7-32.2); Mean Corpuscular Hgb Concent. 32.5 g/dL (32.3-36.5); Mean Platelet Volume 10.3 fL (9.4-12.4); Monocyte (Absolute #) 0.35 x10^3/uL (0.30-0.82); Monocytes % 4.5 % (5.3-12.2); Neutrophil % 74.2 % (34.0-67.9); Platelet Count 227 x10^3/uL (163-337); Red Blood Count 3.96 x10^6/uL (4.63-6.08); Red Cell Distribution Width 13.7 % (11.6-14.4); White Blood Count 7.7 x10^3/uL (4.23-9.07)
[2024-04-10 20:34] LABS: ALBUMIN 4.5 g/dL (3.5-5.0); ANION GAP 10.1 MEQ/L (5-15); BILIRUBIN,TOTAL 0.9 mg/dL (0.2-1.3); Calcium 9.8 mg/dL (8.4-10.2); Creatinine 1 2.16 mg/dL (0.66-1.25); EST GLOMERULAR FILTRATION RATE 30.4 ML/MIN; Potassium 4.1 mmol/L (3.5-5.1); Total Protein 7.1 g/dL (6.3-8.2)
[2024-04-10] MEDS ORDERED: TORAdol 30 mg Injection ONE (20:56)
[2024-04-10] MEDS ORDERED: ZOFRAN ODT 4 MG ONE (20:56)
[2024-04-10] MEDS: TORAdol 30 mg Injection IM ONE (20:57)
[2024-04-10] MEDS: ZOFRAN ODT 4 MG PO ONE (20:59)
[2024-04-10] MEDS: Zofran 4 MG/2 ML VIAL IV ONE (21:04)
[2024-04-10] MEDS: Hydromorphone 1 mg/ml Injection IV ONE (21:04)
--- NOTE | 2024-04-10 21:39 | XRAY ---
CLINICAL HISTORY: right flank pain COMPARISON: - TECHNIQUE: Contiguous axial images were obtained from the level of the diaphragm to the pubic symphysis without intravenous or oral contrast. Coronal and sagittal reconstructions were likewise performed and indicated to increase the sensitivity for detecting clinically relevant pathology. CT scan was performed according to ALARA (as low as reasonable achievable). FINDINGS: The visualized lung bases are clear. Evaluation of the abdominal and pelvic visceral organs is limited without intravenous contrast. The unenhanced liver, spleen, pancreas, and adrenal glands are grossly unremarkable. The gallbladder is present. The kidneys are normal in size and attenuation. Small 1-3 mm non-obstructive bilateral renal calculi are seen. Bilateral perinephric fat stranding is seen. There is no hydronephrosis . The ureters are normal in caliber. No adenopathy or fluid collections are seen. Small sized diverticula are seen in the sigmoid colon. No evidence of focal or diffuse bowel wall thickening or evidence of bowel obstruction is seen. The aorta shows atherosclerotic calcification. The urinary bladder is normal in contour. Prostate is enlarged in size, measuring around 5.4 x 4.3 cm Degenerative changes in the visualized spine. No aggressive appearing osseous lesions are identified. IMPRESSION: 1. Bilateral non-obstructive renal calculi 2. Prostatomegaly 3. Uncomplicated sigmoid diverticulosis 4. Bilateral perinephric fat stranding Electronically Signed by: Brooks Zacarias MD. (04/10/2024 21:35:34 EST)
[2024-04-10 22:21] VITALS: O2SAT 98
[2024-04-10 23:20] VITALS: BP 124/71; PULSE 91; RESP 17
[2024-04-10] MEDS ORDERED: KEFLEX 500 MG ONE (23:21)
[2024-04-10] MEDS: KEFLEX 500 MG PO ONE (23:22)
== END 2024-04-10 23:30 | disposition home or self-care (01) ==
LOC: ED 18:49
DX: N20.2 Calculus of kidney with calculus of ureter (principal); N39.0 Urinary tract infection, site not specified; R10.9 Unspecified abdominal pain; I12.9 Hypertensive chronic kidney disease with stage 1 through stage 4 chronic kidney disease, or unspecified chronic kidney disease; N18.2 Chronic kidney disease, stage 2 (mild); Z79.01 Long term (current) use of anticoagulants; Z79.899 Other long term (current) drug therapy
CPT/HCPCS: 36415; 74176; 80053; 81001; 82150; 83605; 83690; 85025; 87086; 96372; 99284; J1885; Q0162; A9270-GY

== ENCOUNTER 2024-05-13 18:07 | Emergency (ER) | payer MEDICARE, OTHER ==
[2024-05-13 18:38] VITALS: TEMP 97.5
[2024-05-13] MEDS ORDERED: DUONEB 0.5-3 MG/3 ml Neb IH ONE (18:43)
[2024-05-13] MEDS: DUONEB 0.5-3 MG/3 ml Neb IH ONE (18:45)
[2024-05-13 19:00] LABS: Absolute Neutrophil Ct (ANC) 4.83 x10^3/uL (1.78-5.38); BASOPHIL % 0.7 % (0.2-1.2); Basophil (Absolute #) 0.06 x10^3/uL (0.01-0.08); Eosinophil % 1.5 % (0.8-7.0); Eosinophil (Absolute #) 0.13 x10^3/uL (0.04-0.54); Hematocrit 38.3 % (40.1-51.0); Hemoglobin 12.6 g/dL (13.7-17.5); IMMATURE GRAN # 0.02 x10^3u/L (0.001-0.031); IMMATURE GRAN % 0.2 % (0.001-0.429); Lymphocyte (Absolute #) 3.17 x10^3/uL (1.32-3.57); Lymphocytes % 35.9 % (21.8-53.1); Mean Cell Volume 90.8 fL (79.0-92.2); Mean Corpuscular Hemoglobin 29.9 pg (25.7-32.2); Mean Corpuscular Hgb Concent. 32.9 g/dL (32.3-36.5); Mean Platelet Volume 9.7 fL (9.4-12.4); Monocyte (Absolute #) 0.62 x10^3/uL (0.30-0.82); Neutrophil % 54.7 % (34.0-67.9); Platelet Count 242 x10^3/uL (163-337); Red Blood Count 4.22 x10^6/uL (4.63-6.08); Red Cell Distribution Width 14.2 % (11.6-14.4); White Blood Count 8.8 x10^3/uL (4.23-9.07)
[2024-05-13 19:18] VITALS: O2SAT 96
[2024-05-13 19:30] LABS: ALBUMIN 4.2 g/dL (3.5-5.0); ANION GAP 16.4 MEQ/L (5-15); BILIRUBIN,TOTAL 1.1 mg/dL (0.2-1.3); Creatinine 1 1.29 mg/dL (0.66-1.25); EST GLOMERULAR FILTRATION RATE 56.1 ML/MIN; MAGNESIUM 2.2 mg/dL (1.6-2.3); NT PRO BNPII 430 pg/mL (<300); Potassium 4.8 mmol/L (3.5-5.1); TROPONIN < 0.012 ng/mL (0.000-0.033); Total Protein 6.6 g/dL (6.3-8.2)
[2024-05-13 20:04] LABS: Appearance Clear (Clear); Bacteria None Seen /HPF (None Seen); Bilirubin Negative (Negative); Blood Negative (Negative); Epithelial Cells None Seen /HPF (None Seen); Glucose, Urine Negative (Negative); Hyaline Casts NONE SEEN /LPF (0-2); Ketones Negative (Negative); Leukocyte Esterase Negative (Negative); Nitrite Negative (Negative); Protein,Urine Dip Negative (Negative); RBC 0-2 /HPF (0-5); Specific Gravity 1.015 (1.005-1.030); Urobilinogen 0.2 mg/dL (0.2); WBC 0-2 /HPF (0-5)
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
[2024-05-13] MEDS ORDERED: Zithromax 250 MG TABLET ONE (20:19)
[2024-05-13] MEDS: Zithromax 250 MG TABLET PO ONE (20:21)
[2024-05-13 20:24] VITALS: BP 135/79; PULSE 75; RESP 20
--- NOTE | 2024-05-14 08:50 | XRAY ---
Indication: Short of breath. Comparison: December 19, 2022 Portable chest again demonstrates minimal left base discoid atelectasis/scarring. Remaining heart and lungs unremarkable. Bony thorax intact again with osteopenia and mild degenerative changes. No new/acute findings.
== END 2024-05-13 20:37 | disposition home or self-care (01) ==
LOC: ED 18:07
DX: J06.9 Acute upper respiratory infection, unspecified (principal); R05.1 Acute cough; J40 Bronchitis, not specified as acute or chronic; J02.9 Acute pharyngitis, unspecified; R09.81 Nasal congestion; I12.9 Hypertensive chronic kidney disease with stage 1 through stage 4 chronic kidney disease, or unspecified chronic kidney disease; N18.2 Chronic kidney disease, stage 2 (mild); Z79.899 Other long term (current) drug therapy
CPT/HCPCS: 36415; 71045; 80053; 81001; 83735; 83880; 84484; 85025; 93005; 94640; 99284; 99285; A9270-GY